=== PATIENT | female | born 1985 | race Caucasian/White ===

== ENCOUNTER 2016-12-24 06:49 | Inpatient (IN) | payer BC ==
[2016-12-24] VITALS (22 sets, daily range): BP systolic 107–145; BP diastolic 54–90
[~2016-12-24] VITALS: Ht 172.7 cm; Wt 138.8 kg
[~2016-12-24 06:49] MED LIST: BACLOFEN10 MG PO; CARAFATE1 GM PO; DIFLUCAN150 MG PO; EFFEXOR75 MG PO; FLUOXETINE HCL40 MG PO; HYDROCHLOROTH12.5 M1 PO; HYDROCODON-ACE1 EAC7 PO; KEFLEX500 MG PO; METFORMIN HCL500 MG PO; NAPROSYN500 MG PO; NOHOMEMEDS; POTASSIUM-9999 MG PO; PRILOSEC20 MG PO; PROTONIX40 MG PO; ZOFRAN ODT4 MG PO
[2016-12-24] MEDS ORDERED: METHYLDOPA250 MG PO (07:46)
[2016-12-24] MEDS ORDERED: PROZAC20 MG PO (07:47)
[2016-12-24] MEDS ORDERED: VITAMIN D-32000 UNI2 PO (07:47)
[2016-12-24 09:31] LABS: EOSINOPHIL (%) 0.5 % (0-5); EOSINOPHIL COUNT 0.1 K/uL (0-0.3); HEMATOCRIT 37.6 % (36.0-46.0); IMMATURE GRANULOCYTE (%) 0.5 % (0.0-0.7); IMMATURE GRANULOCYTE COUNT 0.1 K/uL; INSTRUMENT ABS NEUTROPHIL CT 8.5 K/uL; LYMPHOCYTE COUNT 1.6 K/uL (1.0-2.8); MCHC 33.2 G/DL (30.0-36.0); MCV 93.3 FL (83-99); MEAN PLAT.VOLUME 9.9 uM^3 (9.5-12.4); MONOCYTE (%) 5.8 % (3-12); MONOCYTE COUNT 0.6 K/uL (0-0.8); NEUTROPHIL (%) 77.9 % (45-76); NEUTROPHIL COUNT 8.5 K/uL (1.8-6.4); PLATELET COUNT 207 K/uL (156-360); RBC DIS.WIDTH-CV 12.8 % (11.8-14.6); RBC DIS.WIDTH-SD 43.9 % (39-53); RED BLOOD COUNT 4.03 M/uL (3.80-5.20); WHITE BLOOD COUNT 10.9 K/uL (4.1-10.2)
[2016-12-25] VITALS (18 sets, daily range): BP systolic 88–127; BP diastolic 49–68
[2016-12-25] MEDS ORDERED: PERCOCET 5/31 TABLET PO (12:53)
[2016-12-25] MEDS ORDERED: MOTRIN800 MG PO (12:53)
[2016-12-26] VITALS (7 sets, daily range): BP systolic 85–124; BP diastolic 45–60
[2016-12-26 06:50] LABS: HEMATOCRIT 32.3 % (36.0-46.0); MCH 30.9 PG (29.0-34.0); MCHC 32.2 G/DL (30.0-36.0); MCV 95.8 FL (83-99); MEAN PLAT.VOLUME 9.7 uM^3 (9.5-12.4); PLATELET COUNT 157 K/uL (156-360); RBC DIS.WIDTH-CV 13.3 % (11.8-14.6); RBC DIS.WIDTH-SD 46.7 % (39-53); RED BLOOD COUNT 3.37 M/uL (3.80-5.20)
[2016-12-26 07:23] LABS: WHITE BLOOD COUNT 17.3 K/uL (4.1-10.2)
[2016-12-26 09:34] LABS: ABS NEUTROPHIL COUNT 15.1; ANISOCYTOSIS 1+; ATYPICAL LYMPHOCYTE 0.9 %; BAND NEUTROPHILS 26.1 % (0-8.0); EOSINOPHIL ABS CT 0; INSTRUMENT ABS NEUTROPHIL CT 14.5 K/uL; LYMPHOCYTES 6.9 % (15.0-45.0); METAMYELOCYTES 4.3 %; PLAT.SUFFICIENCY ADEQUATE; SEG.NEUTROPHILS 60.9 % (46.0-76.0); SPHEROCYTES 2+
[2016-12-27 04:38] VITALS: BP 132/65
[2016-12-27 07:35] VITALS: BP 102/59
[2016-12-27 07:49] VITALS: BP 127/69
[2016-12-27 15:35] VITALS: BP 137/83
[2016-12-27 19:22] VITALS: BP 104/57
[2016-12-27 23:15] VITALS: BP 130/67
[2016-12-28 03:27] VITALS: BP 129/72
[2016-12-28 08:13] VITALS: BP 127/64
[2016-12-28 11:31] VITALS: BP 115/59
[2016-12-28 15:15] VITALS: BP 129/65
[2016-12-28 20:17] VITALS: BP 116/57
[2016-12-28 22:13] VITALS: BP 116/60
[2016-12-29 03:16] VITALS: BP 121/68
[2016-12-29 07:19] VITALS: BP 127/74
== END 2016-12-29 12:26 | disposition home or self-care (01) | DRG 765 ==
LOC: LDRP-OP → 2WEST 06:50 → LDRP-OP 08:55 → 2WEST 12-25 13:37 → LDRP-OP 01-31 12:21
PROVIDERS: Midwife; Obstetrics & Gynecology
PROC: 3E0P7GC Introduction of Other Therapeutic Substance into Female Reproductive, Via Natural or Artificial Opening (ICD-10-PCS; principal; 2016-12-24)
PROC: 00HU33Z Insertion of Infusion Device into Spinal Canal, Percutaneous Approach (ICD-10-PCS; principal; 2016-12-24)
PROC: 4A1H74Z Monitoring of Products of Conception, Cardiac Electrical Activity, Via Natural or Artificial Opening (ICD-10-PCS; principal; 2016-12-24)
PROC: 3E033VJ Introduction of Other Hormone into Peripheral Vein, Percutaneous Approach (ICD-10-PCS; principal; 2016-12-24)
PROC: 3E0S3CZ (ICD-10-PCS; principal; 2016-12-24)
PROC: 10907ZC Drainage of Amniotic Fluid, Therapeutic from Products of Conception, Via Natural or Artificial Opening (ICD-10-PCS; principal; 2016-12-24)
PROC: 10D00Z1 Extraction of Products of Conception, Low, Open Approach (ICD-10-PCS; 2016-12-25)
DX: O65.4 Obstructed labor due to fetopelvic disproportion, unspecified (principal); O10.92 Unspecified pre-existing hypertension complicating childbirth; O99.344 Other mental disorders complicating childbirth; F32.9 Major depressive disorder, single episode, unspecified; O99.824 Streptococcus B carrier state complicating childbirth; O62.2 Other uterine inertia; O75.81 Maternal exhaustion complicating labor and delivery; O99.214 Obesity complicating childbirth; E66.01 Morbid (severe) obesity due to excess calories; Z3A.39 39 weeks gestation of pregnancy; Z37.0 Single live birth; Z68.41 Body mass index [BMI] 40.0-44.9, adult
CPT/HCPCS: 85025; 86900; 86901; C1755; G0378; J0595; J1170; J1580; J1885; J2210; J2250; J2274; J2405; J3010; J3370; J7120